=== PATIENT | female | born 1965 | race Caucasian/White ===

== ENCOUNTER 2024-10-11 09:16 | Day surgery (SDC) | payer MEDICAID ==
[2024-10-11] MEDS: Lactated Ringers 1,000 ML IV SCH (10:20)
[2024-10-11] MEDS ORDERED: Propofol 200 MG/20 ML SDV ONE ×2 (10:52→11:43)
[2024-10-11] MEDS ORDERED: Midazolam 1 MG/ML 2 ML SDV ONE (10:52)
[2024-10-11] MEDS ORDERED: fentaNYL 100 MCG/2 ML SDV ONE (10:52)
== END 2024-10-11 13:00 | disposition home or self-care (01) ==
LOC: JP.SDS 09:16
PROVIDERS: ATTEND Surgery
DX: Z12.11 Encounter for screening for malignant neoplasm of colon (principal); K20.90 Esophagitis, unspecified without bleeding; I10 Essential (primary) hypertension; E66.9 Obesity, unspecified; Z86.0100 Personal history of colon polyps, unspecified
CPT/HCPCS: 00813; 43239; 45378; 88305; J2250; J2704; J3010; J7120